=== PATIENT | female | born 1970 | race Caucasian/White ===

== ENCOUNTER 2023-01-10 10:47 | Inpatient (IN) | payer BC ==
[2023-01-10 13:11] LABS: Amphetamine Screen,Urine Not Detected (NotDetected); Barbiturate Screen,Urine Not Detected (NotDetected); Benzodiazepines Screen,Urine Not Detected (NotDetected); Cocaine Screen,Urine Not Detected (NotDetected); Methadone Screen, Urine Not Detected (NotDetected); Opiate Screen,Urine Not Detected (NotDetected); Oxycodone Screen, Urine Not Detected (NotDetected); Phencyclidine Screen,Urine Not Detected (NotDetected); Tricyclic Antidepressant,Urine Not Detected (NotDetected); Urn Cannabinoid Scrn Not Detected (NotDetected)
--- NOTE | 2023-01-10 13:48 | ED ---
Psych HPI - General Chief Complaint: Psychiatric Symptoms Stated Complaint: Mental Health Time Seen by Provider: 01/10/23 12:01 Source: patient, RN notes reviewed Mode of arrival: ambulatory Limitations: no limitations - History of Present Illness Initial Comments: 52-year-old female presents emergency Department chief complaint of mental breakdown. Patient states that she typically tries to hide all of her symptoms she states she's recently started seeing a therapist and primary care physician they tried her on some medication but symptoms worsen. Patient states that she cannot take any more ligamentous. Patient is brought here for evaluation she's been recommended multiple times, prescribed for psychiatric evaluation. Denies any suicidal time. - Related Data Home Medications Medication Instructions Recorded Confirmed No Known Home Medications 01/10/23 01/10/23 Allergies Allergy/AdvReac Type Severity Reaction Status Date / Time ibuprofen [From Motrin] Allergy Anaphylaxis Verified 01/10/23 12:41 latex Allergy Rash/Hives Verified 01/10/23 12:41 Penicillins Allergy Rash/Hives Verified 01/10/23 12:41 Review of Systems ROS Statement: Those systems with pertinent positive or pertinent negative responses have been documented in the HPI. ROS Other: All systems not noted in ROS Statement are negative. Past Medical History Additional Past Medical History / Comment(s): Mitral valve History of Any Multi-Drug Resistant Organisms: None Reported Past Surgical History: No Surgical Hx Reported Past Psychological History: ADD/ADHD, Anxiety, Bipolar, Depression, Panic Disorder Smoking Status: Never smoker Past Alcohol Use History: None Reported Past Drug Use History: None Reported General Exam Limitations: no limitations General appearance: alert, in no apparent distress Head exam: Present: atraumatic, normocephalic, normal inspection Eye exam: Present: normal appearance, PERRL, EOMI. Absent: scleral icterus, conjunctival injection, periorbital swelling ENT exam: Present: normal exam, normal oropharynx, mucous membranes moist Neck exam: Present: normal inspection, full ROM. Absent: tenderness, meningismus, lymphadenopathy Respiratory exam: Present: normal lung sounds bilaterally. Absent: respiratory distress, wheezes, rales, rhonchi, stridor Cardiovascular Exam: Present: regular rate, normal rhythm, normal heart sounds. Absent: systolic murmur, diastolic murmur, rubs, gallop, clicks GI/Abdominal exam: Present: soft, normal bowel sounds. Absent: distended, tenderness, guarding, rebound, rigid Neurological exam: Present: alert, oriented X3 Psychiatric exam: Present: depressed Course Vital Signs 01/10/23 10:48 Temperature 97.6 F Pulse Rate 111 H Respiratory 24 Rate Blood Pressure 154/115 O2 Sat by Pulse 99 Oximetry Medical Decision Making - Medical Decision Making Was pt. sent in by a medical professional or institution ([facility], [facility], urgent care, hospital, or [facility]...) When possible be specific @ -Therapist, PCP, Did you speak to anyone other than the patient for history (EMS, parent, family, police, friend...)? What history was obtained from this source @ -Friend in the room providing recent history and complaints of medications Did you review nursing and triage notes (agree or disagree)? Why? @ -I reviewed and agree with nursing and triage notes Were old charts reviewed (outside hosp., previous admission, EMS record, old EKG, old radiological studies, urgent care reports/EKG's, [facility] records)? Report findings @ -No old charts were reviewed Differential Diagnosis (chest pain, altered mental status, abdominal pain women, abdominal pain men, vaginal bleeding, weakness, fever, dyspnea, syncope, headache, dizziness, GI bleed, back pain, seizure, CVA, palpatations, mental health, musculoskeletal)? @ -Depression, suicidal ideation, anxiety, PTSD, bipolar disorder EKG interpreted by me (3pts min.). @ -None X-rays interpreted by me (1pt min.). @ -None done CT interpreted by me (1pt min.). @ -None done U/S interpreted by me (1pt. min.). @ -None done What testing was considered but not performed or refused? (CT, X-rays, U/S, labs)? Why? @ -None What meds were considered but not given or refused? Why? @ -None Did you discuss the management of the patient with other professionals (professionals i.e. [facility], [facility], lab, RT, psych nurse, home health care social worker, sap specialist, teacher, public records officer, case management manager)? Give summary @ -EPS who evaluated the patient and discussed with psychiatrist recommend inpatient treatment Was smoking cessation discussed for >3mins.? @ -No Was critical care preformed (if so, how long)? @ -No Were there social determinants of health that impacted care today? How? (Homelessness, low income, unemployed, alcoholism, drug addiction, transportation, low edu. Level, literacy, decrease access to med. care, [facility], rehab)? @ -No Was there de-escalation of care discussed even if they declined (Discuss DNR or withdrawal of care, Hospice)? DNR status @ -No What co-morbidities impacted this encounter? (DM, HTN, Smoking, COPD, CAD, Cancer, CVA, ARF, Chemo, Hep., AIDS, mental health diagnosis, sleep apnea, morbid obesity)? @ -None Was patient admitted / discharged? Hospital course, mention meds given and route, prescriptions, significant lab abnormalities, going to OR and other pertinent info. @ -hospital course Undiagnosed new problem with uncertain prognosis? @ -No Drug Therapy requiring intensive monitoring for toxicity (Heparin, Nitro, Insulin, Cardizem)? @ -No Were any procedures done? @ -No Diagnosis/symptom? @ -Depression Acute, or Chronic, or Acute on Chronic? @ -Acute Uncomplicated (without systemic symptoms) or Complicated (systemic symptoms)? @ -Uncomplicated Side effects of treatment? @ -No Exacerbation, Progression, or Severe Exacerbation? @ -No Poses a threat to life or bodily function? How? (Chest pain, [place], [place], pneumonia, PE, COPD, DKA, ARF, appy, cholecystitis, CVA, Diverticulitis, Homicidal, Suicidal, threat to staff... and all critical care pts) @ -Yes patient has severe depression, possibly suicidal ideation - Lab Data Lab Results 01/10/23 Range/Units 12:45 Urine Opiates Screen Not Detected (NotDetected) Ur Oxycodone Screen Not Detected (NotDetected) Urine Methadone Screen Not Detected (NotDetected) Ur Propoxyphene Screen Not Detected (NotDetected) Ur Barbiturates Screen Not Detected (NotDetected) U Tricyclic Antidepress Not Detected (NotDetected) Ur Phencyclidine Scrn Not Detected (NotDetected) Ur Amphetamines Screen Not Detected (NotDetected) U Methamphetamines Scrn Not Detected (NotDetected) U Benzodiazepines Scrn Not Detected (NotDetected) Urine Cocaine Screen Not Detected (NotDetected) U Marijuana (THC) Screen Not Detected (NotDetected) Disposition Clinical Impression: Depression Disposition: TRANSFER TO PSYCH HOSP/UNIT Condition: Stable Referrals: Daksha Ureña MD [Primary Care Provider] - 1-2 days Time of Disposition: 15:27
[2023-01-10] MEDS ORDERED: ACETAMINOPHEN TAB 325 MG TAB PO STA (16:13)
[2023-01-10] MEDS ORDERED: MAG HYDROX/AL HYDROX/SIMETH 30 ML CUP PO PRN (21:27)
[2023-01-10] MEDS ORDERED: LORazepam 2 MG/ML INJ IM PRN (21:27)
[2023-01-10] MEDS ORDERED: HALOPERIDOL LACTATE 5 MG/ML 1 ML VIAL IM PRN (21:27)
[2023-01-10] MEDS ORDERED: haloperidoL 5 MG TAB PO PRN (21:27)
[2023-01-10] MEDS ORDERED: MAGNESIUM HYDROXIDE 2,400 MG/10 ML CUP PO PRN (21:27)
[2023-01-10] MEDS ORDERED: ACETAMINOPHEN TAB 325 MG TAB PO PRN (21:27)
[2023-01-10] MEDS ORDERED: LORazepam 1 MG TAB PO PRN (21:27)
[2023-01-11] MEDS ORDERED: FLUoxetine HCL 10 MG CAP PO STA (10:40)
--- NOTE | 2023-01-11 11:11 | P.CONS ---
History of Present Illness - Reason for Consult Consult date: 01/11/23 Medical management Requesting physician: Moi Ha - Chief Complaint Depression - History of Present Illness This is a 52-year-old female patient of Dr. Ureña who presents to the ER with depression with mental breakdown. Patient reports that she has been dealing with her whole life with symptoms of depression but has been trying to hide it but was advised by therapist and primary care physician for possible inpatient admission. Patient reports she has been on medication but symptoms appear to have gotten worse. Patient denies any suicidal ideation. Patient denies any recent health issues. Patient denies any significant health history does have a past medical history of ADHD, bipolar, panic disorder, depression. Patient denies any chest pain or shortness of breath. Patient denies nausea vomiting or diarrhea. Patient denies any urinary burning or frequency Review of Systems Please refer to HPI otherwise unremarkable Past Medical History Additional Past Medical History / Comment(s): Mitral valve History of Any Multi-Drug Resistant Organisms: None Reported Past Surgical History: No Surgical Hx Reported Past Anesthesia/Blood Transfusion Reactions: No Reported Reaction Past Psychological History: ADD/ADHD, Anxiety, Bipolar, Depression, Panic Disorder Smoking Status: Never smoker Past Alcohol Use History: None Reported Past Drug Use History: None Reported - Past Family History Father Family Medical History: No Reported History Medications and Allergies Home Medications Medication Instructions Recorded Confirmed Type No Known Home Medications 01/10/23 01/10/23 History Allergies Allergy/AdvReac Type Severity Reaction Status Date / Time ibuprofen [From Motrin] Allergy Anaphylaxis Verified 01/10/23 12:41 latex Allergy Rash/Hives Verified 01/10/23 12:41 Penicillins Allergy Rash/Hives Verified 01/10/23 12:41 Physical Exam Vitals: Vital Signs Temp Pulse Resp BP Pulse Ox 01/11/23 06:30 97.3 F L 118 H 16 97/81 01/10/23 21:23 97.8 F 81 16 165/100 98 Intake and Output 01/10/23 01/11/23 01/11/23 22:59 06:59 14:59 Other: Weight 90.718 kg Head normocephalic Neck supple Lungs clear to auscultation bilaterally no wheezing or crackles Heart regular rate and rhythm S1-S2, no rub or gallop Abdomen is soft nontender nondistended positive bowel sounds no hepatosplenomegaly Extremities no edema Neuro alert and orientated to 3 Assessment and Plan Assessment: 1. Depression. Patient has been admitted to the mental health unit 2. History of ADHD 3. History of bipolar depression 4. History of panic disorder Thank you for this consultation we will continue to follow patient closely throughout stay Time with Patient: Greater than 30 (Greater than 60% of the total time spent in counseling and coordination of care)
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
[2023-01-11 11:55] LABS: Basophils % (A) 1 %; Eosinophils # (A) 0.1 k/uL (0-0.7); Eosinophils % (A) 2 %; HGB 14.1 gm/dL (11.4-16.0); Lymphocytes # (A) 1.5 k/uL (1.0-4.8); Lymphocytes % (A) 32 %; MCH 28.9 pg (25.0-35.0); MCHC 32.9 g/dL (31.0-37.0); MCV 87.9 fL (80.0-100.0); Mean Platelet Volume 6.9; Monocytes # (A) 0.3 k/uL (0-1.0); Monocytes % (A) 5 %; Neutrophils # (A) 2.8 k/uL (1.3-7.7); Neutrophils % (A) 59 %; Platelet Count 277 k/uL (150-450); RBC 4.89 m/uL (3.80-5.40); RDW 12.8 % (11.5-15.5); WBC 4.8 k/uL (3.8-10.6)
[2023-01-11 12:18] LABS: ALT 20 U/L (4-34); AST 25 U/L (14-36); African American GFR (CKD) >90 (>60 ml/min/1.73 sqM); Albumin 4.4 g/dL (3.5-5.0); Alkaline Phosphatase 52 U/L (38-126); Anion Gap 8 mmol/L; Calcium 9.3 mg/dL (8.4-10.2); Carbon Dioxide 26 mmol/L (22-30); Chloride 104 mmol/L (98-107); Glucose 104 mg/dL (74-99); Non-African American GFR(CKD) 81 (>60 ml/min/1.73 sqM); Potassium 4.5 mmol/L (3.5-5.1); Sodium 138 mmol/L (137-145); Total Bilirubin 0.6 mg/dL (0.2-1.3); Total Protein 7.8 g/dL (6.3-8.2)
[2023-01-11 12:33] LABS: Blood Urea Nitrogen 14 mg/dL (7-17)
[2023-01-11 20:39] LABS: Chol/HDL Ratio 3.47 Ratio; LDL Cholesterol,Calculated 158.9 mg/dL (0.0-131.0)
[2023-01-11] MEDS: OLANZapine 2.5 MG TAB PO SCH (20:40)
[2023-01-12] MEDS: OLANZapine 2.5 MG TAB PO SCH (07:59)
[2023-01-12 08:01] VITALS: BP 115/63; PULSE 94; RESP 18; TEMP 97.6
[2023-01-12] MEDS ORDERED: FLUoxetine HCL 10 MG CAP PO SCH (09:00)
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
== END 2023-01-12 13:55 | disposition home or self-care (01) | DRG 885 ==
LOC: EC 10:47 → 3MHU 20:21
PROVIDERS: ADMIT Psychiatry & Neurology Psychiatry; ATTEND Psychiatry & Neurology Psychiatry
DX: F31.81 Bipolar II disorder (principal); F42.9 Obsessive-compulsive disorder, unspecified; F43.10 Post-traumatic stress disorder, unspecified; F84.0 Autistic disorder; F90.9 Attention-deficit hyperactivity disorder, unspecified type; I10 Essential (primary) hypertension; Z28.310 Unvaccinated for COVID-19; F41.0 Panic disorder [episodic paroxysmal anxiety]; Z88.6 Allergy status to analgesic agent; Z88.0 Allergy status to penicillin; Z79.899 Other long term (current) drug therapy; Z91.410 Personal history of adult physical and sexual abuse; Z91.52 Personal history of nonsuicidal self-harm
CPT/HCPCS: 80053; 80061; 80306; 82075; 83036; 84443; 85025; 87635; 99285